=== PATIENT | female | born 1995 | race Caucasian/White ===

== ENCOUNTER 2020-12-07 14:32 | Emergency (ER) | payer OTHER ==
[~2020-12-07] VITALS: Ht 152.4 cm; Wt 72.6 kg
[2020-12-07 16:18] VITALS: BP 126/63
[2020-12-07] MEDS ORDERED: CYCL-711 PO (18:45)
[2020-12-07] MEDS: CYCLOBENZAPRINE 10 MG TAB PO ONE (19:29)
[2020-12-07 19:30] VITALS: BP 126/63
--- NOTE | 2020-12-07 19:30 | NUR ---
Patient discharged with v/s stable. Written and verbal after care instructions given and explained. Patient verbalized understanding. Ambulatory with steady gait. All questions addressed prior to discharge. Advised to follow up with PMD.
== END 2020-12-07 19:30 | disposition home or self-care (01) ==
LOC: MED 14:32
DX: M54.6 Pain in thoracic spine (principal); Z90.49 Acquired absence of other specified parts of digestive tract; Z79.899 Other long term (current) drug therapy
CPT/HCPCS: 72128; 72131; 81025; 99285